=== PATIENT | female | born 1995 | race Caucasian/White ===

== ENCOUNTER 2023-08-24 06:47 | Emergency (ER) | payer OTHER, SELFPAY ==
[2023-08-24 07:05] VITALS: BP 143/89; PULSE 89; RESP 16; TEMP 36.7; O2SAT 97; BMI 33.6
[2023-08-24 07:38] LABS: Strep Grp A by PCR Rapid Positive (Negative)
--- NOTE | 2023-08-24 07:45 | ED.URI ---
HPI - URI/Sore Throat General Chief Complaint: Upper Respiratory Symptoms Stated Complaint: Sore Throat, Swelling, Fever, Cough Time Seen by Provider: 08/24/23 07:45 Source: patient Mode of arrival: Ambulatory History of Present Illness HPI Narrative: 28-year-old female complains of 2 days' duration of sore throat, some occasional cough, no shortness a breath or chest pain. Feels some feverishness, took ibuprofen 5 this morning, no recent Tylenol. No known exposure to persons with documented strep. No trouble swallowing. No trouble moving her neck. He is able to control her secretions well. She does not have abnormal voice quality. Related Data Previous Rx's Medication Instructions Recorded amoxicillin 875 mg tablet 875 mg PO BID dental infection 10 08/24/23 days #20 tabs Allergies Allergy/AdvReac Type Severity Reaction Status Date / Time No Known Drug Allergies Allergy Verified 08/24/23 08:19 Review of Systems Review of Systems Narrative: As per HPI Patient History Social History Smoking Status: Former smoker Smoking Status: Former smoker Exam Narrative Exam Narrative: GENERAL: Well-developed patient, in mild distress. Normal phonation HEAD: Atraumatic. Normocephalic. EYES: Pupils equal round and reactive. Extraocular motions intact. No scleral icterus. No injection or drainage. ENT: Nose without bleeding, purulent drainage. Throat with erythema, no tonsillar hypertrophy or exudate. No palatal or uvular edema. Airway patent. NECK: Trachea midline. Non tender. No palpable anterior cervical nodes, moves neck well, no rigidity. Also no trismus, handles secretions well CARDIOVASCULAR: Regular rate and rhythm without murmurs, gallops, or rubs. RESPIRATORY: Clear to auscultation. Breath sounds equal bilaterally. No wheezes, rales, or rhonchi. GASTROINTESTINAL: Abdomen soft, non-tender, nondistended. EXTREMITIES: No edema or joint tenderness. BACK: Nontender without deformity or crepitance. No flank tenderness. NEURO: AOx3. SKIN: No rash or erythema of visible areas Initial Vital Signs Initial Vital Signs: Vital Signs Temperature 98.0 F 08/24/23 07:05 Pulse Rate 89 08/24/23 07:05 Respiratory Rate 16 08/24/23 07:05 Blood Pressure 143/89 H 08/24/23 07:05 Pulse Oximetry 97 08/24/23 07:05 Oxygen Delivery Method Room Air 08/24/23 07:05 Course Orders Ordered: Discontinued Medications Acetaminophen (Acetaminophen 325 Mg Tablet) 650 mg PO NOW ONE Stop: 08/24/23 08:10 Last Admin: 08/24/23 08:20 Dose: 650 mg Documented By: RB Amoxicillin (Amoxicillin 250 Mg Capsule) 1,000 mg PO NOW ONE Stop: 08/24/23 08:09 Last Admin: 08/24/23 08:20 Dose: 1,000 mg Documented By: RB Vital Signs Vital signs: Vital Signs - 8 hr 08/24/23 07:05 Temperature 98.0 F Pulse Rate 89 Respiratory Rate 16 Blood Pressure 143/89 H Pulse Oximetry 97 Oxygen Delivery Method Room Air MDM - URI/Sore Throat Lab Data Labs: Lab Results 08/24/23 Range/Units 07:00 Group A Strep (PCR) Positive H (Negative) MDM Narrative Medical decision making narrative: Predominance of sore throat, some occasional cough, oropharynx red without lesions or asymmetry, control secretions well, neck movements normal. Lungs clear, no respiratory distress, no oxygen requirement. Rapid strep screen positive. P.o. amoxicillin 1st dose, prescription for further course as outpatient. Encouraged to use [id number] ibuprofen and Tylenol as needed for pain control and or fever. Return precautions discussed. Discharge Plan Departure Patient Disposition: Home Clinical Impression: Acute streptococcal pharyngitis Activity Restrictions/Additional Instructions: Sore throat symptoms, some component of cough, red oropharynx noted without exudates, secretions handled very well, normal neck movements. Strep screen was positive. First dose amoxicillin given now, prescription for further course sent to pharmacy. Take Tylenol and or Motrin as needed for pain control, consider use of topical lozenges or Chloraseptic like sprays to help with additional pain control if needed. Consider recheck with your regular provider if not improving in the next couple of days. Return to this/nearest emergency department for any change worsening symptoms or any concerns prior Prescriptions: New amoxicillin 875 mg tablet 875 mg PO BID 10 Days Qty: 20 0RF Stand Alone Forms: Patient Portal/API
[2023-08-24] MEDS: ACETAMINOPHEN 325 MG TABLET 650 MG PO (08:20)
[2023-08-24] MEDS: AMOXICILLIN 250 MG CAPSULE 1000 MG PO (08:20)
== END 2023-08-24 08:27 | disposition home or self-care (01) ==
PROVIDERS: Emergency Provider Emergency Medicine
DX: J02.0 Streptococcal pharyngitis (principal); Z87.891 Personal history of nicotine dependence
CPT/HCPCS: 87651; 99283

== ENCOUNTER → 2025-02-10 16:22 | Outpatient (CLI) | payer OTHER, SELFPAY ==
--- NOTE | 2025-02-10 16:23 | DI.US.S_ITS ---
PROCEDURE: US OB <= 14 WEEKS FETUS INDICATIONS: Official Dating US OUTSIDE/PRIOR DATING DATA: Last menstrual period (LMP): 11/16/2024. LMP-based estimated date of delivery (OMKAR): 08/23/2025. First dating scan (date and location): 02/10/2025. Estimated date of delivery (OMKAR) from first dating scan: 09/06/2025. TECHNIQUE: Real-time scanning was performed of the fetus and maternal pelvic organs, with image documentation. Endovaginal scanning was also performed to better visualize the fetus and maternal ovaries. COMPARISON: None. FINDINGS: Intrauterine gestation is seen, cardiac motion rate 157 BPM. [place]-rump length is 3.4 cm. Mean gestational sac diameter 4.5 cm. Ultrasound age is 10 weeks and 2 days. IMPRESSION: Intrauterine gestation seen with cardiac motion. Ultrasound age is 10 weeks and 2 days. This is not consistent with the reported LMP. Clinical correlation needed for dating. Dictated by: Martin Chapman M.D. on 02/11/2025 at 8:30 Approved by: Martin Chapman M.D. on 02/11/2025 at 8:32
== END ==
LOC: US 16:22
PROVIDERS: Referring Provider Student in an Organized Health Care Education/Training Program; Visit Provider Student in an Organized Health Care Education/Training Program
DX: Z34.80 Encounter for supervision of other normal pregnancy, unspecified trimester (principal)
CPT/HCPCS: 76801; 76817

== ENCOUNTER → 2025-02-28 13:15 | Outpatient (CLI) | payer OTHER, SELFPAY | PROVIDERS: Visit Provider Student in an Organized Health Care Education/Training Program | DX: O23.599 Infection of other part of genital tract in pregnancy, unspecified trimester (principal); B96.89 Other specified bacterial agents as the cause of diseases classified elsewhere | CPT/HCPCS: 87210 ==

== ENCOUNTER 2025-03-03 16:02 | Emergency (ER) | payer OTHER, SELFPAY ==
[2025-03-03 16:13] VITALS: BP 120/63; PULSE 72; RESP 18; TEMP 37; O2SAT 100; BMI 43.9
--- NOTE | 2025-03-03 16:33 | ED.FEMALEGU ---
HPI - Female Genitourinary General Chief complaint: Urogenital-Female Stated complaint: 13 wks ; spotting, minimal cramping on Rt Time Seen by Provider: 03/03/25 16:27 Source: patient Mode of arrival: Ambulatory History of Present Illness HPI Narrative: 29-year-old female patient, at 13 3/7 weeks EGA by 1st trimester ultrasound which does not concur with her dates. Her LMP was 11/04/2024. Who has developed right lower quadrant discomfort for which she saw her OB provider 2 days ago. She is currently on antibiotics for bacterial vaginosis. Today while using the restroom she noticed a small amount of blood and mucus /discharge on her toilet paper. No cramping. Related Data Home Medications ?Medication ?Instructions ?Recorded ?Confirmed B complex-lysine oral liquid ea PO 01/17/25 02/02/25 ascorbic acid (vitamin C) 1,000 mg 1,000 mg PO DAILY 01/17/25 02/02/25 capsule magnesium glycinate 100 mg (as 325 mg PO DAILY 01/17/25 02/02/25 glycinate) tablet vitamin-ferrous sulfate tab PO 01/17/25 02/02/25 27 mg iron-folic acid 0.8 mg tablet vitamin D3 125 mcg (5,000 cap PO 01/17/25 02/02/25 unit)-vitamin K2 180 mcg capsule Previous Rx's ?Medication ?Instructions ?Recorded metronidazole 500 mg tablet 500 mg PO BID #14 tabs 02/28/25 Allergies Allergy/AdvReac Type Severity Reaction Status Date / Time No Known Drug Allergies Allergy Verified 03/03/25 16:13 Review of Systems Review of Systems ROS Unobtainable: All systems reviewed & are unremarkable except as noted in HPI and below Genitourinary Genitourinary: Reports as per HPI Patient History Medical History (Updated 03/03/25 @ 20:03 by Rodrigo Moreno MD) Normal colonoscopy Intractable vomiting (~09/2024) Surgical History (Updated 01/17/25 @ 08:11 by Adeline Sage RN) H/O endoscopy [place] teeth extracted Family History (Updated 01/17/25 @ 08:14 by Adeline Sage, KATHY) Brother Type 1 diabetes Mother Hypertension Grandmother Hypothyroidism Nodular thyroid disease Grandmother Breast cancer Lymphoma Aunt Breast cancer Grandfather Non-Hodgkin's lymphoma Exam Narrative Exam Narrative: General: Alert and conversant. No distress. Appears well nourished and well hydrated Lungs: Clear to auscultation with good air movement. No wheezing, rales or rhonchi. No respiratory distress Cardiac: Regular rate and rhythm with no appreciable murmur or gallop Abdomen: Soft, nontender with no distention or masses. Normal bowel sounds. No rebound or guarding Neuro: Alert and oriented. Cranial nerves, motor, sensory and cerebellar all grossly intact. No focal deficit Skin: Warm and normal color. No rashes Psychological: Normal affect and interaction. No evidence of delusion or psychosis. Normal mood. Initial Vital Signs Initial Vital Signs: Vital Signs Temperature 98.6 F 03/03/25 16:13 Pulse Rate 72 03/03/25 16:13 Respiratory Rate 18 03/03/25 16:13 Blood Pressure 120/63 03/03/25 16:13 Pulse Oximetry 100 03/03/25 16:13 Oxygen Delivery Method Room Air 03/03/25 16:13 Course Orders Ordered: ED Orders 03/03/25 16:30 Urinalysis and Microscopic Stat 03/03/25 16:46 ABO RH Type Stat Beta HCG, Quant [HCG Quantitative /Beta subunit] Stat CBC Auto Diff [Complete Blood Count AUTO DIFF] Stat CMP [Comprehensive Metabolic Panel] Stat 03/03/25 18:19 US OB <= 14 weeks fetus Stat Vital Signs Vital signs: Vital Signs - 8 hr 03/03/25 16:13 03/03/25 20:11 Temperature 98.6 F Pulse Rate 72 76 Respiratory Rate 18 16 Blood Pressure 120/63 118/62 Pulse Oximetry 100 100 Oxygen Delivery Method Room Air Room Air MDM - Female Genitourinary Lab Data Attestation: I reviewed the patient's lab results. 03/03/25 16:46 03/03/25 16:46 Labs: Lab Results 03/03/25 03/03/25 Range/Units 16:30 16:46 WBC 9.6 (4.5-11.0) X10^3/uL RBC 4.08 (4.0-5.2) X10^6/uL Hgb 13.1 (12.0-16.0) g/dL Hct 37.1 (36-46) % MCV 90.9 (80-100) fL MCH 32.0 (26-34) PG MCHC 35.2 (30-36) % RDW 13.0 (11.6-14.8) % Plt Count 259 (150-400) X10^3/uL Neut % (Auto) 66.6 (50-75) % Lymph % (Auto) 23.3 L (25-40) % [place] % (Auto) 8.7 (3-14) % Eos % (Auto) 1.0 L (2-4) % Baso % (Auto) 0.4 (0-2) % Neut # (Auto) 6400 (3669-3799) /uL Lymph # (Auto) 2200 (9138-1406) /uL [place] # (Auto) 800 (0-900) /uL Eos # (Auto) 100 (0-450) /uL Baso # (Auto) 0 (0-100) /uL Sodium 137 (137-145) mmol/L Potassium 3.8 (3.4-5.1) mmol/L Chloride 105 (98-107) mmol/L Carbon Dioxide 23 (22-32) mmol/L BUN 10 (7-17) mg/dL Creatinine 0.61 (0.52-1.04) mg/dL Estimated GFR > 60 (>60) mL/min BUN/Creatinine Ratio 16.4 (6-22) Glucose 75 (70-99) mg/dL Calcium 9.8 (8.4-10.2) mg/dL Total Bilirubin < 0.1 L (0.2-1.3) mg/dL AST 25 (14-36) IU/L ALT 22 (<35) IU/L Alkaline Phosphatase 38 (38-126) U/L Total Protein 7.5 (6.3-8.2) g/dL Albumin 4.3 (3.5-5.0) g/dL Globulin 3.2 (1.7-4.1) g/dL Albumin/Globulin Ratio 1.3 (1.0-2.8) HCG, Quant 61446 mIU/mL Urine Color Yellow Urine Appearance Clear Urine pH 7.0 (4.5-8.0) Ur Specific [place] 1.010 (1.000-1.035) Urine Protein Negative (Negative) Urine Glucose (UA) Negative (Negative) g/dL Urine Ketones Negative (NEGATIVE) Urine Occult Blood 2+ H (Negative) Urine Nitrate Negative (Negative) Urine Bilirubin Negative (NEGATIVE) Urine Urobilinogen 0.2 (0.2) E.U./dL Ur Leukocyte Esterase Negative (NEGATIVE) Urine RBC 0-1/hpf (0-5/HPF) Urine WBC 1-5/hpf (0-5/HPF) Ur Squamous Epith Cells 1-5 /hpf (0-5/HPF) Urine Bacteria Occasional (0-1) (None) Ur Culture Indicated? Cult not indicated Vol Urine Centrifuged 10ml (spun) Blood Type O Positive Imaging Data US - OB: Radiologist's Impression: IMPRESSION: Single living intrauterine . No acute hemorrhage. MDM Narrative Medical decision making narrative: Patient has first-trimester spotting with no pain and reassuring lab work. Reassuring ultrasound. Patient is to continue care and follow up with her OB team Thursday either in person or by phone. Return to the ER for Discharge Plan Departure Patient Disposition: Home Clinical Impression: Antepartum bleeding, first trimester Instructions: Early Bleeding Activity Restrictions/Additional Instructions: Plan: Monitor symptoms and follow up with your OB provider at least by phone and possibly in person on Thursday, 3 days from now. Return to the ER if worse Prescriptions: No Action metronidazole 500 mg tablet 500 mg PO BID Qty: 14 0RF vit-ferrous sulfat-FA 27 mg iron- 0.8 mg tablet PO B complex-lysine Liquid PO magnesium glycinate 100 mg tablet 325 mg PO DAILY ascorbic acid (vitamin C) 1,000 mg capsule 1,000 mg PO DAILY vitamin D3-vitamin K2 125 mcg (5,000 unit)-180 mcg capsule PO Referrals: Miscellaneous,Doctor[facility] [Primary Care Provider, Medical] Stand Alone Forms: Patient Portal/API
[2025-03-03 16:47] LABS: Appearance Urine UA CLEAR; Bilirubin Urine UA NEGATIVE (NEGATIVE); Color Urine UA YELLOW; Glucose Urine UA NEGATIVE (Negative); Ketones Urine UA NEGATIVE (NEGATIVE); Leukocyte Esterase Urine UA NEGATIVE (NEGATIVE); Nitrite Urine UA NEGATIVE (Negative); Occult Blood Urine UA 2+ (Negative); Protein Urine UA NEGATIVE (Negative); Specific Gravity Urine UA 1.010 (1.000-1.035); Urobilinogen Urine UA 0.2 E.U./dL (0.2)
[2025-03-03 16:50] LABS: pH Urine UA 7.0 (4.5-8.0)
[2025-03-03 16:53] LABS: Culture Indicated Urine Cult Not Indicated
[2025-03-03 16:55] LABS: Add Manual Diff / Slide Review NO; Hematocrit 37.1 % (36-46); Hemoglobin 13.1 g/dL (12.0-16.0); Lymphocytes Absolute Auto 2200 /uL (1100-4500); Mean Corpuscular HGB Conc 35.2 % (30-36); Mean Corpuscular Hemoglobin 32.0 PG (26-34); Mean Corpuscular Volume 90.9 fL (80-100); Platelet Count 259 X10^3/uL (150-400)
[2025-03-03 17:03] LABS: HEMOLYSIS < 15 (0-50)
[2025-03-03 17:08] LABS: Alanine Aminotransferase 22 IU/L (<35); Albumin 4.3 g/dL (3.5-5.0); Albumin Globulin Ratio 1.3 (1.0-2.8); Alkaline Phosphatase 38 U/L (38-126); Blood Urea Nitrogen 10 mg/dL (7-17); Calcium 9.8 mg/dL (8.4-10.2); Carbon Dioxide 23 mmol/L (22-32); Chloride 105 mmol/L (98-107); Estimated Glomerular Filt Rate > 60 mL/min (>60); Globulin 3.2 g/dL (1.7-4.1); Glucose 75 mg/dL (70-99); Potassium 3.8 mmol/L (3.4-5.1); Sodium 137 mmol/L (137-145); Total Protein 7.5 g/dL (6.3-8.2)
[2025-03-03 17:51] LABS: HCG Quantitative /Beta subunit 42512 mIU/mL
--- NOTE | 2025-03-03 18:19 | DI.US.S_ITS ---
PROCEDURE: US OB <= 14 WEEKS FETUS INDICATIONS: SPOTTING AND PAIN TECHNIQUE: Real-time scanning was performed of the fetus and maternal pelvic organs, with image documentation. Endovaginal scanning was also performed to better visualize the fetus and maternal ovaries. COMPARISON: [facility], , OB <= 14 WEEKS FETUS, 02/10/2025, 16:38. FINDINGS: Embryo: [place]-rump length is 7.5 cm which is 13 weeks 4 days. heart rate 150 beats per minute. No perigestational hemorrhage. Maternal organs: Ovaries not well demonstrated. IMPRESSION: Single living intrauterine . No acute hemorrhage. We strive to produce accurate, complete, and clear reports of imaging services. To assist us in improving patient care, this report was composed using standard report templates and voice recognition software. Therefore, it may contain abnormal punctuation, insertions and/or omissions. Occasional wrong-word or sound-alike substitutions may occur. Though we review the report and make efforts to correct it, we do recommend that the report be read carefully in proper context to recognize any text inaccuracies. Dictated by: Hugo Mccord M.D. on 03/03/2025 at 19:33 Approved by: Hugo Mccord M.D. on 03/03/2025 at 19:37
[2025-03-03 20:11] VITALS: BP 118/62; PULSE 76; RESP 16; O2SAT 100
== END 2025-03-03 20:15 | disposition home or self-care (01) ==
PROVIDERS: Emergency Provider Emergency Medicine
DX: O20.9 Hemorrhage in early pregnancy, unspecified (principal); Z3A.13 13 weeks gestation of pregnancy
CPT/HCPCS: 36415; 76801; 76817; 80053; 81001; 84702; 85025; 86900; 86901; 99282; 99284